=== PATIENT | male | born 2000 | race Caucasian/White ===

== ENCOUNTER 2020-08-16 10:44 | Outpatient (REF) | payer MEDICAID, SELFPAY | END 2020-08-16 10:45 | disposition home or self-care (01) | LOC: HO.LAB 10:44 | PROVIDERS: PCP Pediatrics; Visit Provider Internal Medicine | DX: Z20.828 Contact with and (suspected) exposure to other viral communicable diseases (principal) | CPT/HCPCS: C9803; U0003 ==

== ENCOUNTER 2020-08-18 22:22 | Emergency (ER) | payer MEDICAID, SELFPAY ==
[2020-08-18 22:31] VITALS: BP 141/72; PULSE 97; RESP 20; TEMP 36.2; O2SAT 98; BMI 19.5
--- NOTE | 2020-08-18 23:11 | ED_ITS ---
HPI - Nausea/Vomiting/Diarrhea General Chief complaint: Nausea/Vomiting/Diarrhea Stated complaint: Abd Pain/Vomiting Time Seen by Provider: 08/18/20 23:01 Source: patient Mode of arrival: ambulatory Limitations: no limitations History of Present Illness HPI Narrative: patient states for nausea and 1 episode of vomiting yesterday. Patient presently denies any abdominal pain. Patient states he was exposed to his girlfriend's who is positive for COVID-19 virus. Patient states he was tested for COVID-19 virus 2 days ago and still waiting for the results. Patient states no chest pain, shortness of breath, coughing up blood, weakness. Associated nausea: Yes Related Data Allergies Allergy/AdvReac Type Severity Reaction Status Date / Time No Known Allergies Allergy Verified 08/18/20 22:34 [No Known Allergies*] Review of Systems Review of Systems: Yes all other systems are reviewed and are negative Constitutional: Constitutional: Reports as per HPI and Reports no additional constitutional complaints Eyes: Eyes: Reports as per HPI and Reports no additional eye complaints ENT: Reports system reviewed and no additional complaints, except as documented and Reports as per HPI Cardiovascular: Cardiovascular: Reports as per HPI and Reports no additional cardiovascular complaints Respiratory: Respiratory: Reports as per HPI and Reports no additional respiratory complaints Gastrointestinal: Gastrointestinal: Reports nausea and Reports vomiting (gone) Musculoskeletal: Musculoskeletal: Reports no additional musculoskeletal complaints and Reports as per HPI Neurologic: Reports system reviewed and no additional complaints, except as documented and Reports as per HPI Psychiatric: Psychiatric: Reports no additional psychiatric complaints and Reports as per HPI [facility] Past Medical History Medical History (Updated 08/19/20 @ 00:00 by Background Daemon) Diabetes Social History Social History Alcohol intake: never Smoking Status: Never smoker Use of substances other than those prescribed or required for medical reasons: No Advance Directives: No Advance Directives Information Provided: No Physical Exam Vital Signs: Vital Signs: Last Vital Signs Temp 97.2 F 08/18/20 22:31 Pulse 97 08/18/20 22:31 Resp 20 08/18/20 22:31 BP 141/72 H 08/18/20 22:31 Pulse Ox 98 08/18/20 22:31 Body Mass Index 19.5 Const: General: cooperative, healthy appearing, comfortable, no acute distress, well developed, alert, awake and Physically active Orientation/consciousness: patient oriented x3 HENMT: Head: Yes normal to inspection, Yes No palpable skull fracture present and Yes atraumatic Throat: Yes posterior oropharynx normal, Yes tonsils normal and Yes uvula midline Eyes: General: appearance normal, both eyes and all related structures Neck: Neck: Yes normal visual inspection, Yes full ROM, Yes no lymphadenopathy, Yes no meningeal signs, Yes trachea midline and Yes tender Chest: Chest palpation & inspection: normal inspection of the chest and no localized rib tenderness Resp: Effort & Inspection: normal respiratory effort and able to speak in complete sentences Auscultation: clear to auscultation bilaterally Cardio: Jugular venous distension: no JVD Heart sounds: S1 normal heart sound present and S2 normal heart sound present GI: Inspection: Yes normal to inspection and No abdominal wall ecchymosis Palpation (GI): Soft to palpation, not firm, nontender, no guarding and not rigid : General: No CVA tenderness and Yes no CVA tenderness Back/Spine/Pelvis: Back: no CVA tenderness, No CVA tenderness and No back tenderness Skin: General skin exam: no rashes or lesions noted Neuro: General: patient oriented x3, gait normal, no meningeal signs and CN's II-XI intact bilaterally Cranial nerves: Yes CN's II-XII intact bilaterally Extrem: General: Yes normal to inspection and Yes full ROM Psych: Appearance: grossly normal, well kempt and not disheveled Course Course Course Narrative: No need for repeat testing for COVID. Patient waiting for covid results from his test on wednesday. Patient informed even if he negative for COVID-19 that does not mean he does not have the virus. Patient explained there is false negative. Patient educated if he still symptomatic she should isolate and get retested. Patient given Zofran p.o. Reevaluation(s) Reevaluation #1: no need for repeat COVID swab. Educated on self-isolation MDM - Nausea/Vomiting/Diarrhea MDM Narrative Medical decision making narrative: Viraly syndrome Discharge Plan Discharge Clinical Impression: Acute viral syndrome Patient Disposition: Home, Self-Care Instructions: Viral Syndrome (ED) Additional Instructions: return to the ED for any abdominal pain, fever, chills, weakness, inability to tolerate p.o./liquid, chest pain, shortness of breath, or any other concerning symptoms. Recommend 14 days self-isolation if COVID test come back positive. If he is still symptomatic and COVID tests come back negative still practice self-isolation and retest as needed. follow-up with the PCP Interventions: ED Discharge Assessment Last Done: 08/18/20 23:27 Discharge Date/Time: 08/18/20 23:28 Print Language: Yi
== END 2020-08-18 23:28 | disposition home or self-care (01) ==
PROVIDERS: Emergency Provider Internal Medicine
DX: B34.9 Viral infection, unspecified (principal); R10.9 Unspecified abdominal pain; R11.2 Nausea with vomiting, unspecified; Z20.828 Contact with and (suspected) exposure to other viral communicable diseases
CPT/HCPCS: 99283; 99284

== ENCOUNTER 2021-02-16 10:05 | Emergency (ER) | payer MEDICAID, SELFPAY ==
--- NOTE | 2021-02-16 12:53 | PC.NURSE ---
CALLED WR PATIENT, NO RESPONSE TO TRIAGE
== END 2021-02-16 16:05 | disposition left against medical advice (07) ==
LOC: HO.ED 14:21
PROVIDERS: Emergency Provider Emergency Medicine
DX: R10.11 Right upper quadrant pain (principal)
CPT/HCPCS: 99281

== ENCOUNTER 2021-06-19 11:18 | Outpatient (REF) | payer MEDICAID, SELFPAY | END 2021-06-19 11:19 | disposition home or self-care (01) | LOC: HO.LAB 11:18 | PROVIDERS: Visit Provider Internal Medicine | DX: Z20.822 Contact with and (suspected) exposure to COVID-19 (principal) | CPT/HCPCS: C9803; U0003; U0005 ==

== ENCOUNTER 2021-09-29 20:27 | Inpatient (IN) | payer MEDICAID, SELFPAY ==
[2021-09-29 20:33] VITALS: BP 151/71; PULSE 120; RESP 25; TEMP 36.8; O2SAT 99; BMI 18.9
[2021-09-29 20:37] VITALS: PULSE 84; O2SAT 100
--- NOTE | 2021-09-29 20:40 | ED_ITS ---
HPI - General Adult General Chief complaint: General Medical Stated complaint: hyperglycemia, ? of DKA Time Seen by Provider: 09/29/21 20:36 Source: patient Mode of arrival: ambulatory Limitations: no limitations History of Present Illness HPI narrative: Patient type 1 diabetic since age 13 has some problem with ins marvin unable to get insulin for last few months so rationing his dose of insulin daily taking less amount of Lantus and Humalog for last few days been feeling weak nauseated abdominal pain palpitation blood sugar on arrival was 521. Related Data Previous Rx's Medication Instructions Recorded insulin glargine 100 unit/mL 20 unit (0.2 mL) SUBCUT DAILY #10 09/30/21 subcutaneous solution (Lantus ml U-100 Insulin) insulin lispro 100 unit/mL 18 unit (0.18 mL) SUBCUT TID #15 ml 09/30/21 subcutaneous cartridge (Humalog U-100 Insulin) insulin syringe-needle U-100 1/2 #100 ea 09/30/21 mL 28 gauge x 1/2 (Insulin Syringe MicroFine) Allergies Allergy/AdvReac Type Severity Reaction Status Date / Time No Known Allergies Allergy Verified 08/18/20 22:34 [No Known Allergies*] Review of Systems Review of Systems: Yes all other systems are reviewed and are negative [facility] Past Medical History Medical History (Updated 09/30/21 @ 01:51 by Cam Giron MD) Diabetes Diabetes 1.5, managed as type 1 Social History Social History Alcohol intake: never Patient Tobacco Use Status: Never used Tobacco Use of substances other than those prescribed or required for medical reasons: Yes Substance Use Type: Marijuana Substance Use Frequency: Socially Advance Directives: Yes Advance Directives Information Provided: Yes Advance Directives on File: Yes Advance Directives Date on File: 09/29/21 Physical Exam Vital Signs: Vital Signs: Last Vital Signs Temp 98.6 F 09/30/21 00:57 Pulse 122 H 09/30/21 00:57 Resp 16 09/30/21 00:57 BP 127/71 09/30/21 00:57 Pulse Ox 98 09/30/21 00:57 BMI result Body Mass Index 18.9 Appearance: Alert. Oriented X3. No acute distress. Eyes no pallor/ icterus ENT: Pharynx normal. Oral Mucosa moist Neck: Normal inspection. Neck supple. CVS: Normal heart rate and rhythm. Pulses normal. Respiratory: No respiratory distress. Equal air entry bilateral, no wheezing/rales/rhonchi Abdomen: Soft and nontender. Bowel sounds are present, no mass palpable, no CVA tenderness Skin: Skin warm and dry. Normal skin color. Normal skin turgor. Extremities: No lower extremity edema. No calf tenderness Neuro: Oriented X 3. No motor deficit. 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 Lab Data Lab results reviewed: Yes I reviewed the patient's lab results. Result diagrams: 09/29/21 21:21 09/29/21 21:58 Labs: Lab Results 09/29/21 09/29/21 09/29/21 Range/Units 20:37 21:17 21:18 WBC (4.8-10.8) X10*3/uL RBC (4.60-5.80) X10*6/uL Hgb (14.0-18.0) g/dl Hct (42.0-52.0) % MCV (80.0-98.0) fL MCH (27.0-33.0) pg MCHC (31.0-36.0) g/dl RDW (11.0-16.0) % Plt Count (160-400) X10*3/uL MPV (9.4-12.4) fL Immature Gran % (Auto) (0.0-0.4) % Neut % (Auto) (45-73) % Lymph % (Auto) (20-40) % [place] % (Auto) (2-11) % Eos % (Auto) (0-4) % Baso % (Auto) (0-2) % Lymph # (Auto) (1.2-4.9) X10*3/uL [place] # (Auto) (0.1-1.2) X10*3/uL Eos # (Auto) (0.0-0.4) X10*3/uL Baso # (Auto) (0.0-0.2) X10*3/uL Abs Immat Gran (auto) (0.00-0.03) X10*3/uL Absolute Neuts (auto) (2.0-8.3) x10*3/uL Absolute Nucleated RBC (0.0-0.012) X10*3/uL Nucleated RBC % (auto) (0.0-0.2) /100WBC VBG pH (7.32-7.43) VBG pCO2 mmHg VBG pO2 mmHg VBG HCO3 (22-26) mmol/L VBG O2 Saturation % VBG Base Excess mmol/L Sodium (135-145) mmol/L Potassium (3.3-5.1) mmol/L Chloride (96-108) mmol/L Carbon Dioxide (22-29) mmol/L Anion Gap (12-20) BUN (9-16) mg/dL Creatinine (0.5-1.4) mg/dL Estim Creat Clear Calc Estimated GFR POC Glucose 521 H* (60-115) mg/dL Random Glucose (60-115) mg/dL Calcium (8.4-10.2) mg/dL Total Bilirubin (0.0-1.0) mg/dL AST (5-37) U/L ALT (0-40) U/L Alkaline Phosphatase (39-117) U/L Total Protein (6.5-8.0) g/dL Albumin (3.5-5.0) g/dL Lipase (8-78) U/L Urine Color YELLOW Urine Appearance CLEAR Urine pH 6.0 (5.0-8.0) Ur Specific [place] 1.020 (1.005-1.025) Urine Protein NEG (NEG-TRACE) MG/DL Urine Glucose (UA) >=1000 H (NEG) MG/DL Urine Ketones >=80 (NEG) MG/DL Urine Blood NEG (NEG) Urine Nitrite NEG (NEG) Ur Leukocyte Esterase NEG (NEG) Urine RBC 0-2 (0) /HPF Urine WBC 0-2 (0-4) /HPF Ur Squamous Epith Cells TRACE /LPF Urine Bacteria TRACE /LPF Acetone, Qual (Negative) COVID-19 ([facility]) Negative (Negative) COVID-19 Clin Com See Note 09/29/21 09/29/2122 Range/Units 21:21 21:31 21:58 WBC 7.5 (4.8-10.8) X10*3/uL RBC 4.49 L (4.60-5.80) X10*6/uL Hgb 13.3 L (14.0-18.0) g/dl Hct 39.7 L (42.0-52.0) % MCV 88.4 (80.0-98.0) fL MCH 29.6 (27.0-33.0) pg MCHC 33.5 (31.0-36.0) g/dl RDW 11.3 (11.0-16.0) % Plt Count 170 (160-400) X10*3/uL MPV 12.4 (9.4-12.4) fL Immature Gran % (Auto) 0.3 (0.0-0.4) % Neut % (Auto) 85.3 H (45-73) % Lymph % (Auto) 9.8 L (20-40) % [place] % (Auto) 4.3 (2-11) % Eos % (Auto) 0.0 (0-4) % Baso % (Auto) 0.3 (0-2) % Lymph # (Auto) 0.7 L (1.2-4.9) X10*3/uL [place] # (Auto) 0.3 (0.1-1.2) X10*3/uL Eos # (Auto) 0.0 (0.0-0.4) X10*3/uL Baso # (Auto) 0.0 (0.0-0.2) X10*3/uL Abs Immat Gran (auto) 0.02 (0.00-0.03) X10*3/uL Absolute Neuts (auto) 6.4 (2.0-8.3) x10*3/uL Absolute Nucleated RBC 0.000 (0.0-0.012) X10*3/uL Nucleated RBC % (auto) 0.0 (0.0-0.2) /100WBC VBG pH 7.23 L (7.32-7.43) VBG pCO2 31 mmHg VBG pO2 62 mmHg VBG HCO3 13 L (22-26) mmol/L VBG O2 Saturation 83.0 % VBG Base Excess -12.6 mmol/L Sodium 137 (135-145) mmol/L Potassium 5.2 H (3.3-5.1) mmol/L Chloride 103 (96-108) mmol/L Carbon Dioxide 15 L (22-29) mmol/L Anion Gap 24 H (12-20) BUN 13 (9-16) mg/dL Creatinine 1.04 (0.5-1.4) mg/dL Estim Creat Clear Calc 97.8 Estimated GFR > 60 POC Glucose (60-115) mg/dL Random Glucose 482 H* (60-115) mg/dL Calcium 9.1 (8.4-10.2) mg/dL Total Bilirubin 1.1 H (0.0-1.0) mg/dL AST 14 (5-37) U/L ALT 18 (0-40) U/L Alkaline Phosphatase 98 (39-117) U/L Total Protein 6.9 (6.5-8.0) g/dL Albumin 4.4 (3.5-5.0) g/dL Lipase 6 L (8-78) U/L Urine Color Urine Appearance Urine pH (5.0-8.0) Ur Specific [place] (1.005-1.025) Urine Protein (NEG-TRACE) MG/DL Urine Glucose (UA) (NEG) MG/DL Urine Ketones (NEG) MG/DL Urine Blood (NEG) Urine Nitrite (NEG) Ur Leukocyte Esterase (NEG) Urine RBC (0) /HPF Urine WBC (0-4) /HPF Ur Squamous Epith Cells /LPF Urine Bacteria /LPF Acetone, Qual Moderate H (Negative) COVID-19 ([facility]) (Negative) COVID-19 Clin Com 09/29/21 09/30/21 Range/Units 22:39 01:07 WBC (4.8-10.8) X10*3/uL RBC (4.60-5.80) X10*6/uL Hgb (14.0-18.0) g/dl Hct (42.0-52.0) % MCV (80.0-98.0) fL MCH (27.0-33.0) pg MCHC (31.0-36.0) g/dl RDW (11.0-16.0) % Plt Count (160-400) X10*3/uL MPV (9.4-12.4) fL Immature Gran % (Auto) (0.0-0.4) % Neut % (Auto) (45-73) % Lymph % (Auto) (20-40) % [place] % (Auto) (2-11) % Eos % (Auto) (0-4) % Baso % (Auto) (0-2) % Lymph # (Auto) (1.2-4.9) X10*3/uL [place] # (Auto) (0.1-1.2) X10*3/uL Eos # (Auto) (0.0-0.4) X10*3/uL Baso # (Auto) (0.0-0.2) X10*3/uL Abs Immat Gran (auto) (0.00-0.03) X10*3/uL Absolute Neuts (auto) (2.0-8.3) x10*3/uL Absolute Nucleated RBC (0.0-0.012) X10*3/uL Nucleated RBC % (auto) (0.0-0.2) /100WBC VBG pH (7.32-7.43) VBG pCO2 mmHg VBG pO2 mmHg VBG HCO3 (22-26) mmol/L VBG O2 Saturation % VBG Base Excess mmol/L Sodium (135-145) mmol/L Potassium (3.3-5.1) mmol/L Chloride (96-108) mmol/L Carbon Dioxide (22-29) mmol/L Anion Gap (12-20) BUN (9-16) mg/dL Creatinine (0.5-1.4) mg/dL Estim Creat Clear Calc Estimated GFR POC Glucose 403 H* 386 H* (60-115) mg/dL Random Glucose (60-115) mg/dL Calcium (8.4-10.2) mg/dL Total Bilirubin (0.0-1.0) mg/dL AST (5-37) U/L ALT (0-40) U/L Alkaline Phosphatase (39-117) U/L Total Protein (6.5-8.0) g/dL Albumin (3.5-5.0) g/dL Lipase (8-78) U/L Urine Color Urine Appearance Urine pH (5.0-8.0) Ur Specific [place] (1.005-1.025) Urine Protein (NEG-TRACE) MG/DL Urine Glucose (UA) (NEG) MG/DL Urine Ketones (NEG) MG/DL Urine Blood (NEG) Urine Nitrite (NEG) Ur Leukocyte Esterase (NEG) Urine RBC (0) /HPF Urine WBC (0-4) /HPF Ur Squamous Epith Cells /LPF Urine Bacteria /LPF Acetone, Qual (Negative) COVID-19 ([facility]) (Negative) COVID-19 Clin Com Critical Care Time Critical Care Time Critical Care Time: Yes Total Critical Care Time: 60 Attestation: I spent 60 minutes of critical care, with interventions, assessments, speaking to patient, consultants, Discharge Plan Discharge Clinical Impression: Diabetic keto-acidosis Qualifiers: Diabetes mellitus type: type 1 Diabetes mellitus complication detail: without coma Qualified Code(s): E10.10 - Type 1 diabetes mellitus with ketoacidosis without coma Patient Disposition: Still a Patient Instructions: Diabetic Ketoacidosis (DC) Additional Instructions: Drink plenty of fluids Take insulin as advised Follow-up with PCP Prescriptions: New Lantus U-100 Insulin 100 unit/mL solution 20 unit subcut DAILY Qty: 10 RF: 3 Humalog U-100 Insulin 100 unit/mL cartridge 18 unit subcut TID Qty: 15 RF: 5 (DME) insulin syringe-needle U-100 [Insulin Syringe MicroFine] 1/2 mL 28 gauge x 1/2 syringe See Rx Instructions .Route Qty: 100 RF: 3
[2021-09-29 20:48] LABS: Glucose, Whole Blood 521 mg/dL (60-115)
[2021-09-29 21:11] VITALS: PULSE 123
[2021-09-29] MEDS: Insulin Regular, Human 100 UNIT/ML 3 ML VIAL 10 UNIT IVPUSH (21:26)
[2021-09-29] MEDS: ondansetron HCL 4 MG/2 ML VIAL IVPUSH (21:27)
[2021-09-29] MEDS: 0.9 % Sodium Chloride 1,000 ML 999 ML IV ×2 (21:27→21:28)
[2021-09-29 21:32] LABS: MANUAL DIFF FLAG NO
[2021-09-29 21:33] LABS: Basophils Percent Auto 0.3 % (0-2); Hematocrit 39.7 % (42.0-52.0); Hemoglobin 13.3 g/dl (14.0-18.0); Imm Gran Abs Auto 0.02 X10*3/uL (0.00-0.03); Imm Gran Pct Auto 0.3 % (0.0-0.4); Lymphocytes Absolute Auto 0.7 X10*3/uL (1.2-4.9); Lymphocytes Percent Auto 9.8 % (20-40); Mean Corpuscular HGB Conc 33.5 g/dl (31.0-36.0); Mean Corpuscular Hemoglobin 29.6 pg (27.0-33.0); Mean Corpuscular Volume 88.4 fL (80.0-98.0); Mean Platelet Volume 12.4 fL (9.4-12.4); Monocytes Absolute Auto 0.3 X10*3/uL (0.1-1.2); Monocytes Percent Auto 4.3 % (2-11); Neutrophils Absolute Auto 6.4 x10*3/uL (2.0-8.3); Neutrophils Percent Auto 85.3 % (45-73); Platelet Count 170 X10*3/uL (160-400); Red Blood Count 4.49 X10*6/uL (4.60-5.80); Red Cell Distribution Width 11.3 % (11.0-16.0); White Blood Count 7.5 X10*3/uL (4.8-10.8)
[2021-09-29 21:37] LABS: Appearance Urine CLEAR; Color Urine YELLOW; Glucose Urine UA >=1000 MG/DL (NEG); Leukocyte Esterase Urine NEG (NEG); Nitrite Urine NEG (NEG); Urine Blood NEG (NEG); Urine Ketones >=80 MG/DL (NEG); Urine Protein NEG (NEG-TRACE)
[2021-09-29 21:38] LABS: VBG Base Excess -12.6 mmol/L; VBG HCO3 13 mmol/L (22-26); VBG pCO2 31 mmHg; VBG pH 7.23 (7.32-7.43); VBG pO2 62 mmHg
[2021-09-29 21:40] LABS: Venous Blood Gas Refer to POC result
--- NOTE | 2021-09-29 21:49 | MHC.CM.ED ---
Addendum entered by Sandra Le 09/30/21 17:01: Referral sent to [facility]. Addendum entered by Sandra Le 09/30/21 16:47: Pt will be admitted. CM assessment unchanged. Pt may need PCP made for him prior to d/c. D/C plan is home without services. CM to follow for d/c needs. Original Note: CM met with patient at the request of Dr. Tapia. Per Dr. Tapia, pt tells him he cannot get his insulin due to insurance issues. CM met with pt. Pt admits that he hasn't seen his doctor in at least 6 months, but provider said it was a year. Pt states he needs a form filled out by the doctor for his insurance. Pt states he sees a doctor at the [facility] clinic, he cannot remember the name. Explained to the patient that he must see his doctor to manage his diabetes. Pt has been diabetic since he was 13 years old. Reviewed with him damage to eyes, blood vessels and kidneys with uncontrolled diabetes. Pt states they do very little when he goes to the doctor. CM again reiterated that he must see his provider in-order to obtain his insulin. List of area doctors given. No HCP on file. HCP reviewed, completed and signed per protocol. Copies given and uploaded into [facility] and [facility] [employer]. HCP/mother Palak Lewis ([phone]). Pt fully vaccinated with Moderna. Regina Lawrence aware of above conversation with patient and that his insulin issues are not with his insurance, per se, but his is non-compliance with his MD visits, so they will not complete the insurance request. D/C plan is pending medical work-up. CM to follow for d/c needs.
[2021-09-29 21:53] LABS: Bacteria Urine TRACE /LPF; RBC Urine 0-2 /HPF (0); Squamous Epithelial Cell Urine TRACE /LPF; WBC Urine 0-2 /HPF (0-4)
[2021-09-29 22:05] LABS: COVID-19 Test Negative (Negative)
[2021-09-29 22:17] VITALS: BP 123/65; PULSE 120; RESP 23; O2SAT 98
[2021-09-29 22:25] LABS: Acetone, serum QL Moderate (Negative)
[2021-09-29 22:37] LABS: Alanine Aminotransferase 18 U/L (0-40); Albumin Level 4.4 g/dL (3.5-5.0); Alkaline Phosphatase 98 U/L (39-117); Anion Gap 24 (12-20); Aspartate Amino Transferase 14 U/L (5-37); Bilirubin Total 1.1 mg/dL (0.0-1.0); Blood Urea Nitrogen 13 mg/dL (9-16); Calcium 9.1 mg/dL (8.4-10.2); Carbon Dioxide 15 mmol/L (22-29); Chloride 103 mmol/L (96-108); Creatinine Clr Calc Pharmacy 97.8; Estimated Glomerular Filt Rate > 60; Glucose Random 482 mg/dL (60-115); Lipase 6 U/L (8-78); Potassium 5.2 mmol/L (3.3-5.1); Sodium 137 mmol/L (135-145); Total Protein 6.9 g/dL (6.5-8.0)
[2021-09-29 22:43] LABS: Glucose, Whole Blood 403 mg/dL (60-115)
[2021-09-30] VITALS (11 sets, daily range): BP systolic 107–140; BP diastolic 51–71; PULSE 97–124; RESP 15–22; TEMP 36.4–37; O2SAT 98–100; BMI 21.2
[2021-09-30] MEDS: 0.9 % Sodium Chloride 1,000 ML 999 ML IV (01:11)
[2021-09-30 01:13] LABS: Glucose, Whole Blood 386 mg/dL (60-115)
[2021-09-30] MEDS: Insulin Regular, Human 100 UNIT/ML 3 ML VIAL 10 UNIT IVPUSH (01:13)
--- NOTE | 2021-09-30 01:31 | PC.NURSE ---
Patient's medication were late due to an emergency.
[2021-09-30] MEDS: Insulin Glargine,Hum.rec.anlog 100 UNIT/ML 10 ML VIAL 20 UNIT SUBCUT ×2 (02:01→21:28)
[2021-09-30] MEDS: Insulin Regular, Human 100 UNIT/ML 3 ML VIAL 6 UNIT IVPUSH (02:41)
[2021-09-30] MEDS: 0.9 % Sodium Chloride 1,000 ML 200 ML IVCONT (02:46)
[2021-09-30 03:13] LABS: Glucose, Whole Blood 155 mg/dL (60-115)
[2021-09-30 05:26] LABS: Anion Gap 21 (12-20); Blood Urea Nitrogen 10 mg/dL (9-16); Calcium 9.1 mg/dL (8.4-10.2); Carbon Dioxide 12 mmol/L (22-29); Chloride 113 mmol/L (96-108); Creatinine Clr Calc Pharmacy 100.8; Estimated Glomerular Filt Rate > 60; Glucose Random 198 mg/dL (60-115); Magnesium 2.4 mg/dL (1.6-2.6); Potassium 5.1 mmol/L (3.3-5.1); Sodium 141 mmol/L (135-145)
[2021-09-30 06:25] LABS: Glucose, Whole Blood 198 mg/dL (60-115)
[2021-09-30] MEDS: Sodium Chloride 0.45 % 1,000 ML 80 ML IVCONT (06:41)
[2021-09-30 08:35] LABS: Anion Gap 21 (12-20); Blood Urea Nitrogen 8 mg/dL (9-16); Calcium 8.9 mg/dL (8.4-10.2); Carbon Dioxide 11 mmol/L (22-29); Chloride 110 mmol/L (96-108); Creatinine Clr Calc Pharmacy 98.8; Estimated Glomerular Filt Rate > 60; Glucose Random 247 mg/dL (60-115); Potassium 4.9 mmol/L (3.3-5.1); Sodium 137 mmol/L (135-145)
[2021-09-30] MEDS: Lactated Ringers 1,000 ML 999 ML IV (08:43)
[2021-09-30] MEDS: Insulin Regular, Human 100 UNIT/ML 3 ML VIAL IVPUSH (08:48)
--- NOTE | 2021-09-30 10:14 | PHA.MEDREC ---
Pharmacy Consult ? Medication Reconciliation Pharmacy has completed the medication reconciliation. Patient use humalog and lantus at home but does not know the dose. Reports he use to have omni pods but can't get anymore until he goes to the doctor. Mirna Lopes, PharmD
[2021-09-30 10:22] LABS: VBG Base Excess -14.5 mmol/L; VBG HCO3 11 mmol/L (22-26); VBG pCO2 25 mmHg; VBG pH 7.23 (7.32-7.43); VBG pO2 68 mmHg
[2021-09-30 10:23] LABS: Venous Blood Gas Refer to POC result
[2021-09-30 11:24] LABS: Glucose, Whole Blood 194 mg/dL (60-115)
[2021-09-30] MEDS: Lactated Ringers 1,000 ML 100 ML IVCONT ×2 (11:27→21:28)
[2021-09-30] MEDS: Dextrose 5 % and 0.45 % NaCl 1,000 ML 80 ML IVCONT (11:27)
[2021-09-30] MEDS: Insulin Regular/NS 100 UNIT/100 ML PLAST..BAG IVCONT (11:44)
[2021-09-30 12:54] LABS: Glucose, Whole Blood 189 mg/dL (60-115)
[2021-09-30 13:29] LABS: Anion Gap 18 (12-20); Blood Urea Nitrogen 7 mg/dL (9-16); Calcium 8.7 mg/dL (8.4-10.2); Carbon Dioxide 13 mmol/L (22-29); Chloride 110 mmol/L (96-108); Creatinine Clr Calc Pharmacy 109.4; Estimated Glomerular Filt Rate > 60; Glucose Random 192 mg/dL (60-115); Potassium 4.4 mmol/L (3.3-5.1); Sodium 137 mmol/L (135-145)
[2021-09-30 14:07] LABS: Glucose, Whole Blood 135 mg/dL (60-115)
--- NOTE | 2021-09-30 14:15 | P.HPHOSP_ITS ---
History of Present Illness Date of Service: 09/30/21 Chief Complaint: DKA 21 year male with type 1 DKA since age 13 here with not feeling well and has DKA with inital bicab of 15 but worsened to 11, he could not be admitted to the ICU due to no bed status. He states that he has been reationing his insulin because his doctor is not given him enough until he's seen again in follow up. He has been treated with with IV fluid, IV insulin and seemed to have improved. Most recent bicab is 13 and normal AGAP of 19. Review of Systems Review of Systems: Gen: no fever Resp: no sob, no cough CV: no chest, no TORRES, no leg edema GI: No n/v, no abd pain Neuro: No confusion Yes all other systems are reviewed and are negative [facility] Medical History Diabetes Diabetes 1.5, managed as type 1 Family History (Updated 09/30/21 @ 15:00 by Alexx Null MD) Father Type 2 diabetes mellitus Social History Household Members: Family Housing: Apartment Alcohol intake: never Patient Tobacco Use Status: Never used Tobacco Use of substances other than those prescribed or required for medical reasons: Yes Substance Use Type: Marijuana Substance Use Frequency: Occasionally Last Used Substance: Weeks (ago) Currently Displaying Signs/Symptoms of Drug Intoxication Withdrawal: No Any prior treatment program specific to substance use: No Have you been hit, kicked, punched, or otherwise hurt by someone within the past year? If so, by whom?: No Do you feel safe in your current relationship?: No Current Relationship Is there a partner from a previous relationship who is making you feel unsafe now?: No Are you made to feel afraid or neglected: No Advance Directives: Yes Advance Directives Information Provided: Yes Advance Directives on File: Yes Advance Directives Date on File: 09/29/21 Do you have thoughts of harming others: None Do you have a plan to hurt others: No Plan Recently lost weight without trying: No How much weight loss: Not applicable Eating poorly because of decreased appetite: No Nutrition screen score: 0 Nutrition Risks: No Nutritional Risk Poor oral hygiene: No service: No Current occupational status: unemployed Meds Allergies Allergy/AdvReac Type Severity Reaction Status Date / Time No Known Allergies Allergy Verified 08/18/20 22:34 [No Known Allergies*] Active Medications: Current Medications Lactated Ringer's (Lr) 1,000 mls @ 100 mls/hr IVCONT .Q10H ALIX Last Admin: 09/30/21 11:27 Dose: 100 mls/hr Documented by: Pharmacy Consult (Consult Rx Perform Med Rec) 1 each MISCELLANE ONCE PRN PRN Reason: Consult order Home Medications Medication Instructions Recorded Confirmed Last Taken Type fluticasone propionate 110 2 puff INHALATION BID 09/30/21 09/30/21 Unknown History mcg/actuation HFA aerosol inhaler (Flovent HFA) ibuprofen 200 mg tablet (Advil) 400 mg PO Q6H PRN 09/30/21 09/30/21 Unknown History loratadine 10 mg tablet 1 tab PO DAILY PRN 09/30/21 09/30/21 Unknown History Physical Exam Vital Signs and Narrative: Vital Signs: Last Vital Signs Temp 97.6 F 09/30/21 06:15 Pulse 112 H 09/30/21 13:59 Resp 16 09/30/21 13:59 BP 113/56 L 09/30/21 08:25 Pulse Ox 98 09/30/21 08:25 BMI result Body Mass Index 18.9 Results Labs CBC and Chem 7: 09/29/21 21:21 10/01/21 06:10 Labs: Laboratory Results - last 24 hr 09/29/21 09/29/21 09/29/21 20:37 21:17 21:18 MCV MCH MCHC RDW Plt Count MPV Immature Gran % (Auto) Neut % (Auto) Lymph % (Auto) [place] % (Auto) Eos % (Auto) Baso % (Auto) Lymph # (Auto) [place] # (Auto) Eos # (Auto) Baso # (Auto) Abs Immat Gran (auto) Absolute Neuts (auto) Absolute Nucleated RBC Nucleated RBC % (auto) VBG pH VBG pCO2 VBG pO2 VBG HCO3 VBG O2 Saturation VBG Base Excess Anion Gap Estim Creat Clear Calc Estimated GFR POC Glucose 521 H* Random Glucose Calcium Magnesium Total Bilirubin AST ALT Alkaline Phosphatase Total Protein Albumin Lipase Urine Color YELLOW Urine Appearance CLEAR Urine pH 6.0 Ur Specific [place] 1.020 Urine Protein NEG Urine Glucose (UA) >=1000 H Urine Ketones >=80 Urine Blood NEG Urine Nitrite NEG Ur Leukocyte Esterase NEG Urine RBC 0-2 Urine WBC 0-2 Ur Squamous Epith Cells TRACE Urine Bacteria TRACE Acetone, Qual COVID-19 ([facility]) Negative COVID-19 Clin Com See Note 09/29/21 09/29/21 09/29/21 21:21 21:31 21:58 MCV 88.4 MCH 29.6 MCHC 33.5 RDW 11.3 Plt Count 170 MPV 12.4 Immature Gran % (Auto) 0.3 Neut % (Auto) 85.3 H Lymph % (Auto) 9.8 L [place] % (Auto) 4.3 Eos % (Auto) 0.0 Baso % (Auto) 0.3 Lymph # (Auto) 0.7 L [place] # (Auto) 0.3 Eos # (Auto) 0.0 Baso # (Auto) 0.0 Abs Immat Gran (auto) 0.02 Absolute Neuts (auto) 6.4 Absolute Nucleated RBC 0.000 Nucleated RBC % (auto) 0.0 VBG pH 7.23 L VBG pCO2 31 VBG pO2 62 VBG HCO3 13 L VBG O2 Saturation 83.0 VBG Base Excess -12.6 Anion Gap 24 H Estim Creat Clear Calc 97.8 Estimated GFR > 60 POC Glucose Random Glucose 482 H* Calcium 9.1 Magnesium Total Bilirubin 1.1 H AST 14 ALT 18 Alkaline Phosphatase 98 Total Protein 6.9 Albumin 4.4 Lipase 6 L Urine Color Urine Appearance Urine pH Ur Specific [place] Urine Protein Urine Glucose (UA) Urine Ketones Urine Blood Urine Nitrite Ur Leukocyte Esterase Urine RBC Urine WBC Ur Squamous Epith Cells Urine Bacteria Acetone, Qual Moderate H COVID-19 ([facility]) COVID-19 Clin Com 09/29/21 09/30/21 09/30/21 22:39 01:07 03:08 MCV MCH MCHC RDW Plt Count MPV Immature Gran % (Auto) Neut % (Auto) Lymph % (Auto) [place] % (Auto) Eos % (Auto) Baso % (Auto) Lymph # (Auto) [place] # (Auto) Eos # (Auto) Baso # (Auto) Abs Immat Gran (auto) Absolute Neuts (auto) Absolute Nucleated RBC Nucleated RBC % (auto) VBG pH VBG pCO2 VBG pO2 VBG HCO3 VBG O2 Saturation VBG Base Excess Anion Gap Estim Creat Clear Calc Estimated GFR POC Glucose 403 H* 386 H* 155 H Random Glucose Calcium Magnesium Total Bilirubin AST ALT Alkaline Phosphatase Total Protein Albumin Lipase Urine Color Urine Appearance Urine pH Ur Specific [place] Urine Protein Urine Glucose (UA) Urine Ketones Urine Blood Urine Nitrite Ur Leukocyte Esterase Urine RBC Urine WBC Ur Squamous Epith Cells Urine Bacteria Acetone, Qual COVID-19 ([facility]) COVID-19 Clin Com 09/30/21 09/30/21 09/30/21 04:54 06:20 08:06 MCV MCH MCHC RDW Plt Count MPV Immature Gran % (Auto) Neut % (Auto) Lymph % (Auto) [place] % (Auto) Eos % (Auto) Baso % (Auto) Lymph # (Auto) [place] # (Auto) Eos # (Auto) Baso # (Auto) Abs Immat Gran (auto) Absolute Neuts (auto) Absolute Nucleated RBC Nucleated RBC % (auto) VBG pH VBG pCO2 VBG pO2 VBG HCO3 VBG O2 Saturation VBG Base Excess Anion Gap 21 H 21 H Estim Creat Clear Calc 100.8 98.8 Estimated GFR > 60 > 60 POC Glucose 198 H Random Glucose 198 H D 247 H Calcium 9.1 8.9 Magnesium 2.4 Total Bilirubin AST ALT Alkaline Phosphatase Total Protein Albumin Lipase Urine Color Urine Appearance Urine pH Ur Specific [place] Urine Protein Urine Glucose (UA) Urine Ketones Urine Blood Urine Nitrite Ur Leukocyte Esterase Urine RBC Urine WBC Ur Squamous Epith Cells Urine Bacteria Acetone, Qual COVID-19 ([facility]) COVID-19 Clin Com 09/30/21 09/30/21 09/30/21 10:03 11:20 12:49 MCV MCH MCHC RDW Plt Count MPV Immature Gran % (Auto) Neut % (Auto) Lymph % (Auto) [place] % (Auto) Eos % (Auto) Baso % (Auto) Lymph # (Auto) [place] # (Auto) Eos # (Auto) Baso # (Auto) Abs Immat Gran (auto) Absolute Neuts (auto) Absolute Nucleated RBC Nucleated RBC % (auto) VBG pH 7.23 L VBG pCO2 25 VBG pO2 68 VBG HCO3 11 L VBG O2 Saturation 89.0 VBG Base Excess -14.5 Anion Gap Estim Creat Clear Calc Estimated GFR POC Glucose 194 H 189 H Random Glucose Calcium Magnesium Total Bilirubin AST ALT Alkaline Phosphatase Total Protein Albumin Lipase Urine Color Urine Appearance Urine pH Ur Specific [place] Urine Protein Urine Glucose (UA) Urine Ketones Urine Blood Urine Nitrite Ur Leukocyte Esterase Urine RBC Urine WBC Ur Squamous Epith Cells Urine Bacteria Acetone, Qual COVID-19 ([facility]) COVID-19 Clin Com 09/30/21 09/30/21 12:55 13:58 MCV MCH MCHC RDW Plt Count MPV Immature Gran % (Auto) Neut % (Auto) Lymph % (Auto) [place] % (Auto) Eos % (Auto) Baso % (Auto) Lymph # (Auto) [place] # (Auto) Eos # (Auto) Baso # (Auto) Abs Immat Gran (auto) Absolute Neuts (auto) Absolute Nucleated RBC Nucleated RBC % (auto) VBG pH VBG pCO2 VBG pO2 VBG HCO3 VBG O2 Saturation VBG Base Excess Anion Gap 18 Estim Creat Clear Calc 109.4 Estimated GFR > 60 POC Glucose 135 H Random Glucose 192 H Calcium 8.7 Magnesium Total Bilirubin AST ALT Alkaline Phosphatase Total Protein Albumin Lipase Urine Color Urine Appearance Urine pH Ur Specific [place] Urine Protein Urine Glucose (UA) Urine Ketones Urine Blood Urine Nitrite Ur Leukocyte Esterase Urine RBC Urine WBC Ur Squamous Epith Cells Urine Bacteria Acetone, Qual COVID-19 ([facility]) COVID-19 Clin Com Assessment and Plan (1) Diabetic keto-acidosis: Qualifiers: Diabetes mellitus complication detail: without coma Diabetes mellitus type: type 1 Qualified Code(s): E10.10 - Type 1 diabetes mellitus with ketoacidosis without coma Status: Acute 21 year old male with type 1 diabetes here with DKA due to inadequate home insulin therapy DKA--continue management with IVF, insulin and diabetic education and outpatient endocrinology follow for evaulation for insulin pump. Follow [facility] Quality Stroke Does the patient have a stroke diagnosis?: No VTE Prior VTE?: No VTE Risk Level:: Medical - low VTE Device Contraindication: Treatment Not Indicated VTE Drug Contraindication: Treatment Not Indicated
[2021-09-30 15:25] LABS: Glucose, Whole Blood 121 mg/dL (60-115)
--- NOTE | 2021-09-30 17:02 | PC.NURSE ---
rn to rn report called to karey Hernandez pt to go to overflow.
[2021-09-30 20:17] LABS: Glucose, Whole Blood 384 mg/dL (60-115)
--- NOTE | 2021-09-30 20:38 | PM.EVENT ---
Event Note Date of Service: 09/30/21 Event Note: hyperglycemia: Patient uses glucose is been fluctuating. Will discontinue the patient's level of 5 q.i.d. and start the patient on Lantus 20 units at bedtime Also place the patient on insulin sliding scale.
[2021-09-30] MEDS: 0.9 % Sodium Chloride Flush 3 ML SYRINGE IVFLUSH (21:29)
[2021-09-30] MEDS: Insulin Lispro 100 UNIT/ML 3 ML VIAL SUBCUT (21:29)
[2021-10-01 02:44] VITALS: BP 122/64; PULSE 101; RESP 20; TEMP 36.6; O2SAT 98
[2021-10-01 06:36] LABS: Anion Gap 10 (12-20); Blood Urea Nitrogen 7 mg/dL (9-16); Calcium 9.1 mg/dL (8.4-10.2); Carbon Dioxide 26 mmol/L (22-29); Chloride 108 mmol/L (96-108); Creatinine Clr Calc Pharmacy 140.5; Estimated Glomerular Filt Rate > 60; Glucose Random 125 mg/dL (60-115); Potassium 3.6 mmol/L (3.3-5.1); Sodium 140 mmol/L (135-145)
[2021-10-01 07:13] VITALS: BP 121/57; PULSE 76; RESP 18; TEMP 36.1; O2SAT 100
[2021-10-01 07:48] LABS: Glucose, Whole Blood 110 mg/dL (60-115)
[2021-10-01] MEDS: 0.9 % Sodium Chloride Flush 3 ML SYRINGE IVFLUSH (07:59)
--- NOTE | 2021-10-01 10:16 | PM.DS ---
DS: Providers Provider Date of Service: 10/01/21 Date of admission: 09/30/21 15:03 Primary care physician: [facility] DS: Diagnosis Discharge Diagnosis (1) Diabetic keto-acidosis: Status: Acute DS: Summary Hospital Course Hospital Course: Patient was admited for DKA and treated with IVF, IV insulin and DKA has resolved. His initial bicab was 15, went down to 11 and is now 26. He has no symptoms, I suspect compliance maybe an issues. He will follow up with PCP and advise he follows up with an process planner to consdered for an insulin pump. Time Spent with Patient Time attestation: Total time spent providing and/or coordinating discharge services: Discharge coordination time: Greater than 30 minutes Quality: Stroke Does the patient have a stroke diagnosis?: No Physical Exam Vital Signs: Vital Signs: Last Vital Signs Temp 97.0 F 10/01/21 07:13 Pulse 76 10/01/21 07:13 Resp 18 10/01/21 07:13 BP 121/57 L 10/01/21 07:13 Pulse Ox 100 10/01/21 07:13 BMI result Body Mass Index 21.2 DS: Data Data Completed and Pending Labs on day of discharge: Laboratory Results - last 24 hr 09/30/21 09/30/21 09/30/21 10:03 11:20 12:49 VBG pH 7.23 L VBG pCO2 25 VBG pO2 68 VBG HCO3 11 L VBG O2 Saturation 89.0 VBG Base Excess -14.5 Sodium Potassium Chloride Carbon Dioxide Anion Gap BUN Creatinine Estim Creat Clear Calc Estimated GFR POC Glucose 194 H 189 H Random Glucose Calcium 09/30/21 09/30/21 09/30/21 12:55 13:58 15:21 VBG pH VBG pCO2 VBG pO2 VBG HCO3 VBG O2 Saturation VBG Base Excess Sodium 137 Potassium 4.4 Chloride 110 H Carbon Dioxide 13 L Anion Gap 18 BUN 7 L Creatinine 0.93 Estim Creat Clear Calc 109.4 Estimated GFR > 60 POC Glucose 135 H 121 H Random Glucose 192 H Calcium 8.7 09/30/21 10/01/21 10/01/21 19:59 06:10 07:11 VBG pH VBG pCO2 VBG pO2 VBG HCO3 VBG O2 Saturation VBG Base Excess Sodium 140 Potassium 3.6 Chloride 108 Carbon Dioxide 26 Anion Gap 10 L BUN 7 L Creatinine 0.81 Estim Creat Clear Calc 140.5 Estimated GFR > 60 POC Glucose 384 H* 110 Random Glucose 125 H Calcium 9.1 Discharge Plan Discharge Anticipated Discharge Date/Time: 10/01/21 10:11 Patient Disposition: Home, Self-Care Discharge Diagnosis: DKA Referrals: Center,[facility], [facility] [Primary Care Provider] - 1 Week Discharge Medications: New Lantus U-100 Insulin 100 unit/mL solution 20 unit subcut DAILY Qty: 10 RF: 3 Humalog U-100 Insulin 100 unit/mL cartridge 18 unit subcut TID Qty: 15 RF: 5 (DME) insulin syringe-needle U-100 [Insulin Syringe MicroFine] 1/2 mL 28 gauge x 1/2 syringe See Rx Instructions .Route Qty: 100 RF: 3 Continued loratadine 10 mg tablet 1 tab PO DAILY PRN (Reason: Allergy Symptoms) RF: 0 Flovent HFA 110 mcg/actuation HFA aerosol inhaler 2 puff inhalation BID RF: 0 ibuprofen [Advil] 200 mg Tablet 400 mg PO Q6H PRN (Reason: Headache) RF: 0 Discharge Orders: Discharge Order (Routine); Ordered 10/01/21 Ordered By: Alexx Null Diet: advance to usual diet and diabetic diet Activity on Discharge: As tolerated Stand Alone Forms: Patient Portal Discharge page Activity Restrictions/Additional Instructions: Drink plenty of fluids Take insulin as advised Follow-up with PCP Care Plan Goals: prevent rehospitalization for DKA Health Concerns: Diabetes type with DKA complication Plan of Treatment: Take your insulin as directed and follow up with Doctor Assessment: as above Patient Instructions: Diabetic Ketoacidosis (DC)
--- NOTE | 2021-10-01 12:33 | MHC.CM.PN ---
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
== END 2021-10-01 11:00 | disposition home or self-care (01) | DRG 420 ==
LOC: HO.ED 09-30 13:55 → HO.EDOVER 09-30 15:52 → HO.S3 09-30 17:42
PROVIDERS: Emergency Medicine; Internal Medicine; Admitting Provider Internal Medicine; Emergency Provider Emergency Medicine; PCP Nurse Practitioner Primary Care; Visit Provider Internal Medicine
DX: E10.10 Type 1 diabetes mellitus with ketoacidosis without coma (principal); T38.3X6A Underdosing of insulin and oral hypoglycemic [antidiabetic] drugs, initial encounter; Z91.128 Patient's intentional underdosing of medication regimen for other reason; Y92.009 Unspecified place in unspecified non-institutional (private) residence as the place of occurrence of the external cause; Z20.822 Contact with and (suspected) exposure to COVID-19; Z79.1 Long term (current) use of non-steroidal anti-inflammatories (NSAID); Z79.4 Long term (current) use of insulin; Z79.899 Other long term (current) drug therapy
CPT/HCPCS: 36415; 80048; 80053; 81001; 82009; 82803; 82947; 83690; 83735; 85025; 87635; 96361; 96374; 96376; 99285; 99291; J2405

== ENCOUNTER 2022-11-02 19:40 | Emergency (ER) | payer MEDICAID, SELFPAY ==
--- NOTE | ~2022-11-02 | XR_ITS ---
EXAMINATION: XR CHEST CLINICAL INFORMATION: Shortness of breath COMPARISON: 03/15/2018 TECHNIQUE: Frontal view of the chest was obtained. FINDINGS: No significant abnormality is noted involving the heart, lungs, mediastinum, bony thorax or soft tissues. XR/XR chest 1V IMPRESSION: Unremarkable examination.
[2022-11-02 19:45] VITALS: BP 123/84; PULSE 84; O2SAT 100
[2022-11-02 19:54] VITALS: BP 111/70; PULSE 94; RESP 16; TEMP 36.9; O2SAT 99; BMI 22.1
--- NOTE | 2022-11-02 21:02 | ECG_ITS ---
Test Reason : hypo Blood Pressure : / mmHG Vent. Rate : 089 BPM Atrial Rate : 089 BPM P-R Int : 120 ms QRS Dur : 088 ms QT Int : 330 ms P-R-T Axes : 083 078 052 degrees QTc Int : 401 ms Normal sinus rhythm with sinus arrhythmia Normal ECG When compared with ECG of 15-MAR-2018 01:21, No significant change was found Referred By: Kareem Damian Electronically Signed By:GELY ANAND MD
--- NOTE | 2022-11-02 21:03 | ED.GENADULT ---
HPI - General Adult General Chief complaint: General Medical Stated complaint: HYPERGLYCEMIA Time Seen by Provider: 11/02/22 20:54 Source: patient Mode of arrival: EMS Limitations: no limitations History of Present Illness HPI narrative: 22-year-old male with type 2 diabetes on insulin pump presents with a syncopal event. Approximately 1 hour prior to arrival, patient was smoking marijuana. He felt quite hot flashes and had a brief syncopal episode. It was witnessed. He did not hit his head. There is no seizure activity, loss of bowel or bladder control or tongue biting. Earlier today, patient noted excessive urination and now he feels a little thirsty with urination stop. He noted that his blood sugar was above 300 in which case EMS was contacted and brought him to the emergency department. Currently, patient feels well he denies any lightheadedness, chest pain, palpitations, shortness of breath at this time although he did feel short of breath prior to passing out. Denies any history of PE or DVT. Denies any lower extremity edema, recent travel, immobilization, or surgery. Patient reports that his mother does have some sort of cardiac history but he is unclear what that is there is certainly no history of PE or DVT. Related Data Home Medications Medication Instructions Recorded Confirmed fluticasone propionate 110 2 puff inhalation BID 09/30/21 09/30/21 mcg/actuation HFA aerosol inhaler (Flovent HFA) ibuprofen 200 mg tablet (Advil) 400 mg PO Q6H PRN Headache 09/30/21 09/30/21 loratadine 10 mg tablet 1 tab PO DAILY PRN Allergy Symptoms 09/30/21 09/30/21 Previous Rx's Medication Instructions Recorded insulin glargine 100 unit/mL 20 unit (0.2 mL) subcut DAILY #10 09/30/21 subcutaneous solution (Lantus mL U-100 Insulin) insulin lispro 100 unit/mL 18 unit (0.18 mL) subcut TID #15 mL 09/30/21 subcutaneous cartridge (Humalog U-100 Insulin) insulin syringe-needle U-100 1/2 #100 ea 09/30/21 mL 28 gauge x 1/2 (Insulin Syringe MicroFine) Allergies Allergy/AdvReac Type Severity Reaction Status Date / Time No Known Allergies Allergy Verified 11/02/22 19:54 [No Known Allergies*] Review of Systems Review of Systems: CONSTITUTIONAL: Denies weight loss, fever and chills. HEENT: Denies changes in vision and hearing. RESPIRATORY: + SOB no cough. CV: Denies palpitations and CP. GI: Denies abdominal pain, nausea, vomiting and diarrhea. : Denies dysuria and urinary frequency. MSK: Denies myalgia and joint pain. SKIN: Denies rash and pruritus. NEUROLOGICAL: Denies headache + syncope. PSYCHIATRIC: Denies recent changes in mood. Denies anxiety and depression. ENDOCRINE: + polyuria and polydipsia [facility] Past Medical History Medical History Diabetes Diabetes 1.5, managed as type 1 Family History Family History Father Type 2 diabetes mellitus Social History Social History Household Members: Family Housing: Apartment Alcohol intake: never Patient Tobacco Use Status: Never used Tobacco Smoked in Last 30 Days: No Use of substances other than those prescribed or required for medical reasons: Yes Substance Use Type: Marijuana Substance Use Frequency: Weekly Advance Directives: Yes Advance Directives on File: Yes Advance Directives Date on File: 09/29/21 service: No Current occupational status: unemployed Physical Exam ED Vital Signs: Vital Signs - 24 hr 11/02/22 19:54 Temperature 98.4 F Pulse Rate 94 Respiratory Rate 16 Blood Pressure 111/70 Pulse Oximetry 99 Oxygen Delivery Method Room Air BMI result Body Mass Index 22.1 GEN: Well developed, no acute distress, alert, oriented HEENT: Normocephalic, atraumatic, normal external ears, nose appears normal, no oropharyngeal edema or exudates Eyes: Normal to appearance Neck: Supple, no lymphadenopathy Respiratory: Talks in complete sentences, no respiratory distress, clear to auscultation bilaterally Cardiovascular: Regular rate and rhythm, no murmurs rubs or gallops Abdomen: Soft, nontender, nondistended, no guarding, no rebound Back: No CVA tenderness Extremities: No clubbing cyanosis or edema Neurologic: No focal neurologic deficits, cranial nerves 2-12 intact, strength is 5/5 bilaterally, gait normal Skin: No rash Course Course Course Narrative: 22-year-old male with type 2 diabetes presents emergency department after a syncopal event while smoking marijuana. He felt short of breath prior to the event. Most likely his syncope was due to a vasovagal event. His examination was unremarkable. I will obtain an EKG to rule out cardiac dysrhythmia. I will also order a chest x-ray to rule out acute cardiopulmonary disease given his brief episode of shortness of breath. He does have a continuous blood sugar monitor her and which read 100. At this time, patient appears well and I have expectation that he will likely be discharged home. Reevaluation(s) Reevaluation #1: It is 10:00 p.m., the workup is complete. His laboratory analysis was unremarkable. EKG did not reveal any evidence of ischemia for cardiac dysrhythmia. Patient is well-appearing and can be discharged at this time. All discharge instructions were discussed and understood. All questions were addressed and answered. Time: 22:00 Medical Decision Making Medical Decision Making [facility] Narrative: 22-year-old male with type 1 diabetes presents after brief syncopal event. He reports having smoked marijuana just prior to the event. Also noted that his blood sugars were elevated throughout the day. Differential Diagnosis Differential Diagnoses: The differential diagnosis associated with the presentation includes (Hyperglycemia, hypoglycemia, syncope, cardiac dysrhythmia, electrolyte abnormality, anemia, vasovagal, anxiety) Syncope, type 1 diabetes Admission/Observation Consideration of admission/observation: Escalation of care including admission/observation considered Lab Data [facility] Lab Attestation statement: I reviewed the patient's lab results. 11/02/22 21:30 11/02/22 21:30 Labs: Lab Results 11/02/22 11/02/22 Range/Units 21:30 21:30 WBC 7.4 (4.8-10.8) X10*3/uL RBC 5.07 (4.60-5.80) X10*6/uL Hgb 14.6 (14.0-18.0) g/dl Hct 42.6 (42.0-52.0) % MCV 84.0 (80.0-98.0) fL MCH 28.8 (27.0-33.0) pg MCHC 34.3 (31.0-36.0) g/dl RDW 11.6 (11.0-16.0) % Plt Count 196 (160-400) X10*3/uL MPV 11.6 (9.4-12.4) fL Immature Gran % (Auto) 0.3 (0.0-0.4) % Neut % (Auto) 75.4 H (45-73) % Lymph % (Auto) 15.1 L (20-40) % Snyder % (Auto) 8.3 (2-11) % Eos % (Auto) 0.5 (0-4) % Baso % (Auto) 0.4 (0-2) % Lymph # (Auto) 1.1 L (1.2-4.9) X10*3/uL [place] # (Auto) 0.6 (0.1-1.2) X10*3/uL Eos # (Auto) 0.0 (0.0-0.4) X10*3/uL Baso # (Auto) 0.0 (0.0-0.2) X10*3/uL Abs Immat Gran (auto) 0.02 (0.00-0.03) X10*3/uL Absolute Neuts (auto) 5.6 (2.0-8.3) x10*3/uL Absolute Nucleated RBC 0.000 (0.0-0.012) X10*3/uL Nucleated RBC % (auto) 0.0 (0.0-0.2) /100WBC Sodium 143 (135-145) mmol/L Potassium 4.4 D (3.3-5.1) mmol/L Chloride 106 (96-108) mmol/L Carbon Dioxide 28 (22-29) mmol/L Anion Gap 13 (12-20) BUN 11 (9-16) mg/dL Creatinine 0.78 (0.5-1.4) mg/dL Estim Creat Clear Calc 151.0 Estimated GFR > 60 Random Glucose 71 (60-115) mg/dL Calcium 9.9 D (8.4-10.2) mg/dL Total Bilirubin 1.3 H (0.0-1.0) mg/dL AST 12 (5-37) U/L ALT 13 (0-40) U/L Alkaline Phosphatase 99 (39-117) U/L Total Protein 7.2 (6.5-8.0) g/dL Albumin 4.7 (3.5-5.0) g/dL Independent Interpretation I performed an independent interpretation of an: EKG (Normal sinus rhythm heart rate 89, normal intervals, no acute ST elevations depressions, early repolarization) and Plain X-Ray (Chest x-ray, no acute cardiopulmonary disease) External Record Review External record reviewed: Inpatient record (Discharge summary from September of 2021 for DKA) Chronic Conditions Patient?s care impacted by: Diabetes Discharge Plan Discharge Clinical Impression: Syncope, Type 1 diabetes Patient Disposition: Home, Self-Care Instructions: Syncope (ED), Diabetes Type 1: Management (ED) Additional Instructions: You were evaluated in the emergency department after brief episode of passing out. This is likely a vasovagal syncopal episode. This is typically considered benign. You also had noted that your blood sugars have been elevated throughout the day. I would recommend following up with her primary care provider within the next few days for re-evaluation and further management. Should her symptoms recur, please return immediately to the emergency department for evaluation. Prescriptions: No Action Lantus U-100 Insulin 100 unit/mL solution 20 unit subcut DAILY Qty: 10 3RF Humalog U-100 Insulin 100 unit/mL cartridge 18 unit subcut TID Qty: 15 5RF (DME) insulin syringe-needle U-100 [Insulin Syringe MicroFine] 1/2 mL 28 gauge x 1/2 syringe See Rx Instructions .Route Qty: 100 3RF Rx Instructions: As directed loratadine 10 mg tablet 1 tab PO DAILY PRN (Reason: Allergy Symptoms) Flovent HFA 110 mcg/actuation HFA aerosol inhaler 2 puff inhalation BID ibuprofen [Advil] 200 mg Tablet 400 mg PO Q6H PRN (Reason: Headache)
[2022-11-02 21:37] LABS: MANUAL DIFF FLAG NO
[2022-11-02 21:38] LABS: Basophils Percent Auto 0.4 % (0-2); Eosinophils Percent Auto 0.5 % (0-4); Hematocrit 42.6 % (42.0-52.0); Hemoglobin 14.6 g/dl (14.0-18.0); Imm Gran Abs Auto 0.02 X10*3/uL (0.00-0.03); Imm Gran Pct Auto 0.3 % (0.0-0.4); Lymphocytes Absolute Auto 1.1 X10*3/uL (1.2-4.9); Lymphocytes Percent Auto 15.1 % (20-40); Mean Corpuscular HGB Conc 34.3 g/dl (31.0-36.0); Mean Corpuscular Hemoglobin 28.8 pg (27.0-33.0); Mean Platelet Volume 11.6 fL (9.4-12.4); Monocytes Absolute Auto 0.6 X10*3/uL (0.1-1.2); Monocytes Percent Auto 8.3 % (2-11); Neutrophils Absolute Auto 5.6 x10*3/uL (2.0-8.3); Neutrophils Percent Auto 75.4 % (45-73); Platelet Count 196 X10*3/uL (160-400); Red Blood Count 5.07 X10*6/uL (4.60-5.80); Red Cell Distribution Width 11.6 % (11.0-16.0); White Blood Count 7.4 X10*3/uL (4.8-10.8)
[2022-11-02 21:53] LABS: Alanine Aminotransferase 13 U/L (0-40); Albumin Level 4.7 g/dL (3.5-5.0); Alkaline Phosphatase 99 U/L (39-117); Anion Gap 13 (12-20); Aspartate Amino Transferase 12 U/L (5-37); Bilirubin Total 1.3 mg/dL (0.0-1.0); Blood Urea Nitrogen 11 mg/dL (9-16); Calcium 9.9 mg/dL (8.4-10.2); Carbon Dioxide 28 mmol/L (22-29); Chloride 106 mmol/L (96-108); Estimated Glomerular Filt Rate > 60; Glucose Random 71 mg/dL (60-115); Potassium 4.4 mmol/L (3.3-5.1); Sodium 143 mmol/L (135-145); Total Protein 7.2 g/dL (6.5-8.0)
[2022-11-02 22:28] LABS: Troponin-I High Sensitivity < 3.5 ng/L (<3.5-35.0)
== END 2022-11-02 22:30 | disposition home or self-care (01) ==
PROVIDERS: Emergency Provider Emergency Medicine
DX: R55 Syncope and collapse (principal); E10.9 Type 1 diabetes mellitus without complications; F12.90 Cannabis use, unspecified, uncomplicated; R06.02 Shortness of breath; Z79.4 Long term (current) use of insulin; Z96.41 Presence of insulin pump (external) (internal)
CPT/HCPCS: 36415; 71045; 80053; 84484; 85025; 93005; 99283; 99284

== ENCOUNTER 2023-03-03 11:57 | Emergency (ER) | payer MEDICAID, SELFPAY ==
[2023-03-03 12:29] VITALS: BP 124/75; PULSE 65; RESP 18; TEMP 36.6; O2SAT 98; BMI 23.0
--- NOTE | 2023-03-03 12:30 | ED_ITS ---
HPI - General Adult General Chief complaint: Wound/Laceration Stated complaint: R finger laceration Related Data Home Medications Medication Instructions Recorded Confirmed fluticasone propionate 110 2 puff inhalation BID 09/30/21 09/30/21 mcg/actuation HFA aerosol inhaler (Flovent HFA) ibuprofen 200 mg tablet (Advil) 400 mg PO Q6H PRN Headache 09/30/21 09/30/21 loratadine 10 mg tablet 1 tab PO DAILY PRN Allergy Symptoms 09/30/21 09/30/21 Previous Rx's Medication Instructions Recorded insulin glargine 100 unit/mL 20 unit (0.2 mL) subcut DAILY #10 09/30/21 subcutaneous solution (Lantus mL U-100 Insulin) insulin lispro 100 unit/mL 18 unit (0.18 mL) subcut TID #15 mL 09/30/21 subcutaneous cartridge (Humalog U-100 Insulin) insulin syringe-needle U-100 1/2 #100 ea 09/30/21 mL 28 gauge x 1/2 (Insulin Syringe MicroFine) Allergies Allergy/AdvReac Type Severity Reaction Status Date / Time No Known Allergies Allergy Verified 03/03/23 12:29 [No Known Allergies*] [facility] Past Medical History Medical History Diabetes Diabetes 1.5, managed as type 1 Family History Family History Father Type 2 diabetes mellitus Social History Social History Household Members: Family Housing: Apartment Alcohol intake: never Patient Tobacco Use Status: Never used Tobacco Substance Use Type: Marijuana Advance Directives: Yes Advance Directives on File: Yes Advance Directives Date on File: 09/29/21 service: No Current occupational status: unemployed Physical Exam ED Vital Signs: BMI result Body Mass Index 23.0 Course Course Course Narrative: RME- 22-year-old male presents for evaluation of laceration to his left index finger on the palmar side. He is able to flex and extend the digit. Laceration happened on a metal can. Unknown last tetanus Discharge Plan Discharge Clinical Impression: Laceration Patient Disposition: Elopement Prescriptions: No Action Lantus U-100 Insulin 100 unit/mL solution 20 unit subcut DAILY Qty: 10 3RF Humalog U-100 Insulin 100 unit/mL cartridge 18 unit subcut TID Qty: 15 5RF (DME) insulin syringe-needle U-100 [Insulin Syringe MicroFine] 1/2 mL 28 gauge x 1/2 syringe See Rx Instructions .Route Qty: 100 3RF Rx Instructions: As directed loratadine 10 mg tablet 1 tab PO DAILY PRN (Reason: Allergy Symptoms) Flovent HFA 110 mcg/actuation HFA aerosol inhaler 2 puff inhalation BID ibuprofen [Advil] 200 mg Tablet 400 mg PO Q6H PRN (Reason: Headache) Discharge Date/Time: 03/03/23 14:26
== END 2023-03-03 14:26 | disposition left against medical advice (07) ==
PROVIDERS: Emergency Provider Emergency Medicine
DX: S61.211A Laceration without foreign body of left index finger without damage to nail, initial encounter (principal); W26.8XXA Contact with other sharp object(s), not elsewhere classified, initial encounter; E10.9 Type 1 diabetes mellitus without complications; Z79.4 Long term (current) use of insulin; Y93.9 Activity, unspecified; Y92.9 Unspecified place or not applicable; Y99.9 Unspecified external cause status
CPT/HCPCS: 99281

== ENCOUNTER 2024-06-09 12:22 | Outpatient (REF) | payer MEDICAID, SELFPAY ==
[2024-06-09 13:49] LABS: MANUAL DIFF FLAG NO
[2024-06-09 14:06] LABS: Basophils Percent Auto 0.6 % (0-2); Eosinophils Absolute Auto 0.1 X10*3/uL (0.0-0.4); Eosinophils Percent Auto 1.8 % (0-4); Hematocrit 43.4 % (42.0-52.0); Lymphocytes Absolute Auto 1.6 X10*3/uL (1.2-4.9); Lymphocytes Percent Auto 32.4 % (20-40); Mean Corpuscular HGB Conc 34.6 g/dl (31.0-36.0); Mean Corpuscular Hemoglobin 29.1 pg (27.0-33.0); Mean Corpuscular Volume 84.3 fL (80.0-98.0); Mean Platelet Volume 11.9 fL (9.4-12.4); Monocytes Absolute Auto 0.3 X10*3/uL (0.1-1.2); Monocytes Percent Auto 6.5 % (2-11); Neutrophils Absolute Auto 2.9 x10*3/uL (2.0-8.3); Neutrophils Percent Auto 58.7 % (45-73); Platelet Count 208 X10*3/uL (160-400); Red Blood Count 5.15 X10*6/uL (4.60-5.80); Red Cell Distribution Width 11.2 % (11.0-16.0); White Blood Count 4.9 X10*3/uL (4.8-10.8)
[2024-06-09 14:43] LABS: Alanine Aminotransferase 9 U/L (0-40); Albumin Level 4.8 g/dL (3.5-5.0); Alkaline Phosphatase 88 U/L (39-117); Anion Gap 11 (12-20); Aspartate Amino Transferase 11 U/L (5-37); Bilirubin Direct 0.4 mg/dL (0.0-0.5); Bilirubin Total 1.2 mg/dL (0.0-1.0); Blood Urea Nitrogen 11 mg/dL (9-16); Calcium 10.1 mg/dL (8.4-10.2); Carbon Dioxide 28 mmol/L (22-29); Chloride 104 mmol/L (96-108); Cholesterol 172 mg/dL (<200); Estimated Glomerular Filt Rate > 60; Glucose Random 204 mg/dL (60-115); HDL Cholesterol 47 mg/dL (>40); LDL Cholesterol Calculated 114 mg/dL (<100); Potassium 3.8 mmol/L (3.3-5.1); Sodium 139 mmol/L (135-145); Total Protein 7.4 g/dL (6.5-8.0); Triglycerides 56 mg/dL (<150)
[2024-06-12 08:39] LABS: HIV AB/AG Nonreactive (Nonreactive); HIV Num 1 0.07 S/CO (0.00-0.99); ~HepC Num1 0.12 S/CO (0.00-0.79); ~Hepatitis C Antibody Nonreactive (Nonreactive)
[2024-06-13 23:43] LABS: RPR Rapid Plasma Reagin NON-REACTIVE (NON-REACTIVE)
[2024-06-15 22:08] LABS: Fructosamine 557 umol/L (205-285)
== END 2024-06-09 12:23 | disposition home or self-care (01) ==
LOC: HO.HHCL 12:22
PROVIDERS: Visit Provider Nurse Practitioner Primary Care
DX: E10.65 Type 1 diabetes mellitus with hyperglycemia (principal)
CPT/HCPCS: 36415; 80048; 80061; 80076; 82985; 85025; 86592; 86803; 87086; 87389

== ENCOUNTER 2025-04-06 07:45 | Emergency (ER) | payer MEDICAID, SELFPAY ==
[2025-04-06 07:49] VITALS: BP 118/75; PULSE 68; RESP 16; TEMP 36.1; O2SAT 99; BMI 20.2
--- NOTE | 2025-04-06 07:53 | ED_ITS ---
HPI - Abdominal Pain General Chief Complaint: Abdominal Pain Stated Complaint: Diarrhea Vomiting Time Seen by Provider: 04/06/25 07:52 Source: patient and old records reviewed Mode of arrival: ambulatory Limitations: no limitations History of Present Illness ED Provider: KARINA HPI narrative: 25 yo male with PMH of IDDM uses pump and his omnipod notes his sugars are 148 this AM. He went to [place] yesterday but denies eating anything weird or making him feel sick. No other travel/sick contacts. He states he woke up with sudden n/v/d chills and abdominal cramps. No fevers. He states this does not happen to him often. MD elicited complaint: other (n/v/d) Pertinent past history: none Onset (ago): hour(s) (few) Pain Consistency: intermittent Location: diffuse Severity: mild Quality: cramping and aching Radiation: none Migration to: no migration Exacerbating factors: eating and vomiting Relieving factors: nothing Associated symptoms: nausea, vomiting and diarrhea Treatments prior to arrival: other (tried nausea meds ) Related Data Home Medications ?Medication ?Instructions ?Recorded ?Confirmed fluticasone propionate 110 2 puff inhalation BID 09/3009/30/21 mcg/actuation HFA aerosol inhaler (Flovent HFA) ibuprofen 200 mg tablet (Advil) 400 mg PO Q6H PRN Head ache 09/30/21 09/30/21 loratadine 10 mg tablet 1 tab PO DAILY PRN Allergy S ymptoms 09/30/21 09/30/21 Previous Rx's ?Medication ?Instructions ?Recorded insulin glargine 100 unit/mL 20 unit (0.2 mL) subcut D AILY #10 09/30/21 subcutaneous solution (Lantus mL U-100 Insulin) insulin lispro 100 unit/mL 18 unit (0.18 mL) subcut TI D #15 mL 09/30/21 subcutaneous cartridge (Humalog U-100 Insulin) insulin syringe-needle U-100 1/2 #100 ea 09/30/21 mL 28 gauge x 1/2 (Insulin Syringe MicroFine) ondansetron 4 mg disintegrating 4 mg PO Q8H PRN nausea and 04/06/25 tablet vomiting #20 tabs Allergies Allergy/AdvReac Type Severity Reaction Status Date / Time No Known Allergies (No Known Allergy Verified 04/06/25 07:52 Allergies*) Review of Systems Review of Systems Constitutional : No Weight loss, No Fever, No Chills ENT/Mouth : No sore throat, No Rhinorrhea Eyes: No Swelling, No Redness Cardiovascular : No Chest Pain, No SOB, NoEdema Respiratory : No Cough, No Sputum, No Wheezing Gastrointestinal : Positive Nausea, Positive Vomiting, positive Diarrhea, positive abdominal Pain, No Hematochezia, No Melena Genitourinary : No Dysuria, No Urinary Frequency, No Hematuria, No Urgency Musculoskeletal : No joint pain, No Myalgias, No Joint Swelling Skin : No Skin Lesions, No rash Neuro : No Weakness, No Numbness, No Dizziness, No Headache All other systems reviewed and are negative. [facility] Past Medical History Attestation statement: The following information was validated with the patient. Source: old records reviewed Medical History Diabetes 1.5, managed as type 1 Diabetes Family History Family History Father Type 2 diabetes mellitus Social History Social History Household Members: Family Housing: Apartment Alcohol intake: never Patient Tobacco Use Status: Never used Tobacco Substance Use Type: Marijuana Advance Directives: Yes Advance Directives on File: Yes Advance Directives Date on File: 09/29/21 Do you have a plan to hurt others: No Plan service: No Current occupational status: unemployed Physical Exam ED Vital Signs: Vital Signs - 24 hr 04/06/25 07:49 Temperature 96.9 F Pulse Rate 68 Respiratory Rate 16 Blood Pressure 118/75 Pulse Oximetry 99 Oxygen Delivery Method Room Air BMI result Body Mass Index 20.2 Appearance: Alert. Oriented X3. No acute distress. omni pod device measuring glucose 148 right now Eyes: Pupils equal, round and reactive to light. ENT: Pharynx normal. Neck: Normal inspection. Neck supple. CVS: Normal heart rate and rhythm. Pulses normal. Respiratory: No respiratory distress. Breath sounds normal. Abdomen: Soft and nontender. Skin: Skin warm and dry. Normal skin color. Normal skin turgor. Extremities: No lower extremity edema. No calf ttp Neuro: Oriented X 3. No motor deficit. No sensory deficit. CN2-12 intact Medical Decision Making Medical Decision Making [facility] Narrative: 25 yo male with PMH of IDDM uses now here with abrupt onset n/v/d and not feeling well no fevers, no bloody stools overall abdominal exam is benign he has normal BS range right now at this time will pause his insulin pump and then start on supportive meds, IVF and check basic labs. No localized ttp to suggeset acute abd infection and with normal BS range doubt DKA. Suspect more viral syndrome. Differential Diagnosis Differential Diagnoses: The differential diagnosis associated with the presentation includes DKA, viral syndrome, dehydration no localized ttp to suggest biliary colic/appy Admission/Observation Consideration of admission/observation: Escalation of care including admission/observation considered no DKA, labs reassuring stable for DC tolerating PO Lab Data [facility] Lab Attestation statement: I reviewed the patient's lab results. mild anemia no DKA 04/06/25 08:13 04/06/25 08:13 Labs: Lab Results 04/06/25 Range/Units 08:13 WBC 4.5 L (4.8-10.8) X10*3/uL RBC 4.36 L (4.60-5.80) X10*6/uL Hgb 12.9 L (14.0-18.0) g/dl Hct 36.7 L (42.0-52.0) % MCV 84.2 (80.0-98.0) fL MCH 29.6 (27.0-33.0) pg MCHC 35.1 (31.0-36.0) g/dl RDW 11.6 (11.0-16.0) % Plt Count 163 (160-400) X10*3/uL MPV 11.6 (9.4-12.4) fL Immature Gran % (Auto) 0.2 (0.0-0.4) % Neut % (Auto) 64.8 (45-73) % Lymph % (Auto) 26.1 (20-40) % [place] % (Auto) 8.0 (2-11) % Eos % (Auto) 0.7 (0-4) % Baso % (Auto) 0.2 (0-2) % Lymph # (Auto) 1.2 (1.2-4.9) X10*3/uL [place] # (Auto) 0.4 (0.1-1.2) X10*3/uL Eos # (Auto) 0.0 (0.0-0.4) X10*3/uL Baso # (Auto) 0.0 (0.0-0.2) X10*3/uL Abs Immat Gran (auto) 0.01 (0.00-0.03) X10*3/uL Absolute Neuts (auto) 2.9 (2.0-8.3) x10*3/uL Absolute Nucleated RBC 0.000 (0.0-0.012) X10*3/uL Nucleated RBC % (auto) 0.0 (0.0-0.2) /100WBC Sodium 138 (135-145) mmol/L Potassium 4.3 (3.3-5.1) mmol/L Chloride 101 (96-108) mmol/L Carbon Dioxide 30 H (22-29) mmol/L Anion Gap 11 L (12-20) BUN 12 (9-16) mg/dL Creatinine 0.75 (0.5-1.4) mg/dL Estim Creat Clear Calc 140.0 Estimated GFR > 60 Random Glucose 286 H (60-115) mg/dL Calcium 8.6 D (8.4-10.2) mg/dL Total Bilirubin 1.0 (0.0-1.0) mg/dL AST 39 H (5-37) U/L ALT 20 (0-40) U/L Alkaline Phosphatase 81 (39-117) U/L Total Protein 6.1 L (6.5-8.0) g/dL Albumin 4.2 (3.5-5.0) g/dL Lipase 6 L (8-78) U/L External Record Review External record reviewed: Inpatient record and Outpatient record Prescription Management I considered prescription management with: Other Medications Administered Discontinued Medications Generic Name Dose Route Start Last Admin Trade Name Freq PRN Reason Stop Dose Admin Lactated Ringer's 1,000 mls @ 999 mls/hr 04/06/25 07:52 04/06/25 08:15 Lr IV 04/06/25 08:52 999 mls/hr .Q1H1M ONE Administration Ketorolac Tromethamine 15 mg 04/06/25 07:52 04/06/25 08:18 Ketorolac Tromethamine 15 Mg/Ml Vial IVPUSH 04/06/25 07:53 15 mg ONCE ONE Administration Ondansetron HCl 4 mg 04/06/25 07:52 04/06/25 08:18 Ondansetron Hcl 4 Mg/2 Ml Vial IVPUSH 04/06/25 07:53 4 mg ONCE ONE Administration Discharge Plan Discharge Clinical Impression: Nausea & vomiting Qualifiers: Vomiting type: unspecified Qualified Code(s): R11.2 - Nausea with vomiting, unspecified Diarrhea Qualifiers: Diarrhea type: unspecified type Qualified Code(s): R19.7 - Diarrhea, unspecified Patient Disposition: Home, Self-Care Instructions: Acute Nausea and Vomiting (ED), Acute Diarrhea (ED) Additional Instructions: labs reassuring other than mild anemia which you have had in the past I would repeat your lab work with your doctor in one week monitor your sugars rest and stay hydrated return for worsening pain, fevers, bloody stools or any other concerns. Prescriptions: New ondansetron 4 mg tablet,disintegrating 4 mg PO Q8H PRN (Reason: nausea and vomiting) Qty: 20 0RF No Action Lantus U-100 Insulin 100 unit/mL solution 20 unit subcut DAILY Qty: 10 3RF Humalog U-100 Insulin 100 unit/mL cartridge 18 unit subcut TID Qty: 15 5RF (DME) insulin syringe-needle U-100 [Insulin Syringe MicroFine] 1/2 mL 28 gauge x 1/2 syringe See Rx Instructions .Route Qty: 100 3RF Rx Instructions: As directed loratadine 10 mg tablet 1 tab PO DAILY PRN (Reason: Allergy Symptoms) Flovent HFA 110 mcg/actuation HFA aerosol inhaler 2 puff inhalation BID ibuprofen [Advil] 200 mg Tablet 400 mg PO Q6H PRN (Reason: Headache) Stand Alone Forms: Work/School Release Print Language: R[place]
[2025-04-06] MEDS: Lactated Ringers 1,000 ML 999 ML IV (08:15)
[2025-04-06 08:20] LABS: MANUAL DIFF FLAG NO
--- NOTE | 2025-04-06 08:21 | PC.NURSE ---
Per Dr. Degroot told patient he should turn off his insulin pump. Patient states his blood sugar was 227 did not want to shut off insulin pump . states it will stop giving insulin if the blood sugar is too low.
[2025-04-06 08:22] LABS: Hematocrit 36.7 % (42.0-52.0); Hemoglobin 12.9 g/dl (14.0-18.0); Imm Gran Abs Auto 0.01 X10*3/uL (0.00-0.03); Imm Gran Pct Auto 0.2 % (0.0-0.4); Lymphocytes Absolute Auto 1.2 X10*3/uL (1.2-4.9); Mean Corpuscular HGB Conc 35.1 g/dl (31.0-36.0); Mean Corpuscular Hemoglobin 29.6 pg (27.0-33.0); Mean Corpuscular Volume 84.2 fL (80.0-98.0); NRBC Abs Auto 0.000 X10*3/uL (0.0-0.012); NRBC Pct Auto 0.0 /100WBC (0.0-0.2); Platelet Count 163 X10*3/uL (160-400); Red Blood Count 4.36 X10*6/uL (4.60-5.80); White Blood Count 4.5 X10*3/uL (4.8-10.8)
--- OUTSIDE RECORDS SUMMARY | 2025-04-06 08:31 | XMS_ITS | Encounter Summary ---
Author Organization [facility] Address [address] [place] [address] Phone Care Team Providers Care Health And Safety Inspector Name Role Phone Unavailable Primary Care Provider Unavailabl e Encounter Details Date Type Department Care Team ([facility] st Contact Info) Description 05/13/2017 Conversion Encounter [facility] - [address] [address] Social History Tobacco Use Types Packs/Day Years Used Date Smoking Tobacco: Never Assessed Sex and Gender Information Value Date Recorded Sex Assigned at Not on file Legal Sex Male 4:21 PM EDT Gender Identity Not on file Sexual Orientation Not on file documented as of this encounter Plan of Treatment Not on file documented as of this encounter Visit Diagnoses Not on filedocumented in this encounter
--- OUTSIDE RECORDS SUMMARY | 2025-04-06 08:31 | XMS_ITS | Encounter Summary ---
Author Organization [employer] Address [address] [place] [address] [address] [place] [address] Care Team Providers Care Grommet Machine Operator Name Role Phone Page Casas Primary Care Provider [phone] Encounter Details Date Type Department Care Team (Late st Contact Info) Description 11/23/2022 Orders Only [facility] [address] [place] [id number] Alejandrina Zhu LPN Social History Tobacco Use Types Packs/Day Years Used Date Smoking Tobacco: Never Assessed Sex and Gender Information Value Date Recorded Sex Assigned at Male 07/27/2022 10:19 AM EDT Legal Sex Male 10:19 AM EDT Gender Identity Male 07/27/2022 10:19 AM EDT Sexual Orientation Choose not to disclose 2021 10:19 AM EDT documented as of this encounter Plan of Treatment Upcoming Encounters Date Type Department Care Team (Late st Contact Info) Description 04/24/2025 11:30 AM EDT Office Visit [facility] [address] [place] [phone] Page Casas ANP [address] [place] [address] documented as of this encounter Visit Diagnoses Not on filedocumented in this encounter Care Teams Grommet Machine Operator Relationship Specialty Start Date End Date Page Casas ANP [address] [place] [phone] PCP - General Family Medicine 07/15/20 documented as of this encounter
[2025-04-06 08:42] LABS: Alanine Aminotransferase 20 U/L (0-40); Albumin Level 4.2 g/dL (3.5-5.0); Alkaline Phosphatase 81 U/L (39-117); Anion Gap 11 (12-20); Aspartate Amino Transferase 39 U/L (5-37); Blood Urea Nitrogen 12 mg/dL (9-16); Calcium 8.6 mg/dL (8.4-10.2); Carbon Dioxide 30 mmol/L (22-29); Chloride 101 mmol/L (96-108); Creatinine Clr Calc Pharmacy 140.0; Estimated Glomerular Filt Rate > 60; Lipase 6 U/L (8-78); Potassium 4.3 mmol/L (3.3-5.1); Sodium 138 mmol/L (135-145); Total Protein 6.1 g/dL (6.5-8.0)
[2025-04-06 09:59] LABS: Appearance Urine Clear; Glucose Urine UA 500 mg/dL (Negative); PH 8.5 (5.0-9.0); Specific Gravity - Urine 1.010 (1.005-1.025)
[2025-04-06 10:01] VITALS: BP 118/75; PULSE 68; RESP 16; TEMP 36.1; O2SAT 99
--- NOTE | 2025-05-01 07:25 | PC.NURSE ---
total iv volume infused 1000cc.
== END 2025-04-06 10:02 | disposition home or self-care (01) ==
PROVIDERS: Emergency Provider Emergency Medicine
DX: R11.2 Nausea with vomiting, unspecified (principal); R19.7 Diarrhea, unspecified; E10.9 Type 1 diabetes mellitus without complications; Z79.4 Long term (current) use of insulin; Z96.41 Presence of insulin pump (external) (internal)
CPT/HCPCS: 36415; 80053; 81003; 83690; 85025; 96374; 96375; 99283; 99284; J1885; J2405; J7120